=== PATIENT | male | born 1940 | race Caucasian/White ===

== ENCOUNTER → 2019-03-31 | Outpatient (CLI) | payer MEDICARE ==
[~2019-03-31] MED LIST: LEVSOD100
[2019-04-02 12:00] LABS: Stool Occult Bld Immuno 1 Negative (NEGATIVE)
== END | disposition home or self-care (01) ==
LOC: LAB EV 17:00
PROVIDERS: Hospitalist
DX: Z12.11 Encounter for screening for malignant neoplasm of colon (principal)
CPT/HCPCS: G0328

== ENCOUNTER 2024-04-28 19:22 | Emergency (ER) | payer MEDICARE ==
[~2024-04-28] VITALS: Ht 188 cm; Wt 81.7 kg
[2024-04-28 21:15] VITALS: BP 118/99
[2024-04-28] MEDS ORDERED: Polyethylene Glycol 3350 17 gm PO ONE (21:30)
[2024-04-28] MEDS ORDERED: Milk 150ML/Molasses 150ML (300ML Total) PR ONE (21:30)
[2024-04-28] MEDS ORDERED: Sennosides 8.6 MG Tab PO ONE (21:30)
== END 2024-04-29 00:20 | disposition home or self-care (01) ==
LOC: ER 19:22
DX: K59.00 Constipation, unspecified (principal); F03.90 Unspecified dementia, unspecified severity, without behavioral disturbance, psychotic disturbance, mood disturbance, and anxiety; Z88.1 Allergy status to other antibiotic agents
CPT/HCPCS: 74018; 99283-25; A9270